=== PATIENT | male | born 1945 | race Caucasian/White ===

== ENCOUNTER → 2021-01-26 | Day surgery (SDC) | payer MEDICARE ==
[~2021-01-26] MED LIST: FLU VACC QS2021-22(65YR UP)/PF 240 MCG/0.7 ML SYRINGE IM ONE; Ketamine 50 MG/ML (10ML VIAL) ONE; PROPOFOL 20 ML ONE
== END ==
LOC: CSHSDC 11:08
PROVIDERS: ATTEND Specialist
DX: I48.3 Typical atrial flutter (principal); I48.92 Unspecified atrial flutter; E78.5 Hyperlipidemia, unspecified; I10 Essential (primary) hypertension; E11.9 Type 2 diabetes mellitus without complications; M10.9 Gout, unspecified; Z87.891 Personal history of nicotine dependence; Z79.899 Other long term (current) drug therapy
CPT/HCPCS: 92960; 93005; 93010; 93312; J2704